=== PATIENT | male | born 1975 | race Caucasian/White ===

== ENCOUNTER 2019-12-15 22:06 | Emergency (ER) | payer MEDICAID ==
[~2019-12-15] VITALS: Ht 188 cm; Wt 79.5 kg
[2019-12-15 22:09] VITALS: Ht 188 cm; Wt 79.5 kg
[2019-12-15] MEDS ORDERED: ACETAMINOPHEN500 M1 PO (23:27)
[2019-12-15] MEDS ORDERED: CYCLOBENZAPRINE10 MG PO (23:27)
[2019-12-15] MEDS ORDERED: IBUPROFEN800 MG PO (23:27)
[2019-12-15 23:33] VITALS: BP 119/76
== END 2019-12-15 23:33 | disposition home or self-care (01) ==
LOC: D.ER 22:06
DX: S20.212A Contusion of left front wall of thorax, initial encounter (principal); R07.81 Pleurodynia; W01.0XXA Fall on same level from slipping, tripping and stumbling without subsequent striking against object, initial encounter; Y93.9 Activity, unspecified; Y92.89 Other specified places as the place of occurrence of the external cause